=== PATIENT | female | born 1975 | race Caucasian/White ===

== ENCOUNTER 2019-01-17 08:41 | Inpatient (IN) | payer BC ==
[2019-01-17 09:14] VITALS: BMI 28.3
--- NOTE | 2019-01-17 09:39 | HP ---
CIWA Score - Admission Criteria OASAS Guidelines: Admission for Medically Managed Detox: Requires at least one of the followin. CIWA greater than 12 2. Seizures within the past 24 hours 3. Delirium tremens within the past 24 hours 4. Hallucinations within the past 24 hours 5. Acute intervention needed for co occurring medical disorder 6. Acute intervention needed for co occurring psychiatric disorder 7. Severe withdrawal that cannot be handled at a lower level of care (continued vomiting, continued diarrhea, abnormal vital signs) requiring intravenous medication and/or fluids 8. Admission ROS S - HPI Chief Complaint: i amhere for rehab from alcohol,crack,marijuana,cocaine Allergies/Adverse Reactions: Allergies Allergy/AdvReac Type Severity Reaction Status Date / Time seafood Allergy Uncoded 01/17/19 09:39 History of Present Illness: this 43 years old female with alcohol,crack,cocaine marijuana dependence, seeking rehab, last detox and rehab in 2017 in [place] keep relapsing nicotine dependence 2 cigarette/day,do not want nicotine replacement bipolar disorder,ptsd,depression,on med longest sobriety 6 months plan for out patient care after rehab - Ebola screening Have you traveled outside of the country in the last 21 days: No Have you had contact with anyone from an Ebola affected area: No Do you have a fever: No - Review of Systems Constitutional: No Symptoms Reported EENT: reports: No Symptoms Reported (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 right eye with contact lens) Respiratory: reports: No Symptoms reported, Other (asthma) Cardiac: reports: No Symptoms Reported GI: reports: No Symptoms Reported : reports: No Symptoms Reported Musculoskeletal: reports: No Symptoms Reported Integumentary: reports: No Symptoms Reported, Dryness Neuro: reports: No Symptoms reported Endocrine: reports: No Symptoms Reported Hematology: reports: No Symptoms Reported, Other (history of anemia) Psychiatric: reports: No Sypmtoms Reported, Judgement Intact, Mood/Affect Appropiate, Orientated x3, Agitated (bipolar disorder,depression,ptsd), Depressed, other Other Systems: Reviewed and Negative Patient History - Patient Medical History Hx Anemia: Yes (no med) Hx Asthma: Yes (on albuterol inhaler) Hx Chronic Obstructive Pulmonary Disease (COPD): No Hx Cancer: No Hx Cardiac Disorders: No Hx Congestive Heart Failure: No Hx Hypertension: No Hx Hypercholesterolemia: No Hx Pacemaker: No HX Cerebrovascular Accident: No Hx Seizures: No Hx Dementia: No Hx Diabetes: No Hx Gastrointestinal Disorders: No Hx Liver Disease: No Hx Genitourinary Disorders: Yes (s/p hysterctomy for fibriod) Hx Sexually Transmitted Disorders: No Hx Renal Disease (ESRD): No Hx Thyroid Disease: No Hx Human Immunodeficiency Virus (HIV): No (last 11/16 negative) Hx Hepatitis C: No Hx Depression: Yes Hx Suicide Attempt: Yes (overdose at age of 28 years) Hx Bipolar Disorder: Yes Hx Schizophrenia: No Other Medical History: ptsd,no suicidal,no homicidal - Patient Surgical History Past Surgical History: Yes Hx Abdominal Surgery: Yes (exploratory laparotmy for bleeing 7 years ago) Hx Section: Yes (x2 last 1994) Hx Hysterectomy: Yes (in 12/02/18 lap for fibroid) Other Surgical History: conization of 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 Admission?: No PPD to be Administered?: Yes - Reproductive History Patient is a Female of Child Bearing Age (11 -55 yrs old): Yes Patient : No - Smoking Cessation Smoking history: Current every day smoker Have you smoked in the past 12 months: Yes Aproximately how many cigarettes per day: 2 Cigars Per Day: 0 Hx Chewing Tobacco Use: No Initiated information on smoking cessation: Yes 'Breaking Loose' booklet given: 01/17/19 - Substance & Tx. History Hx Alcohol Use: Yes Hx Substance Use: Yes Substance Use Type: Alcohol, Cocaine, Marijuana Hx Substance Use Treatment: Yes ([facility]) - Substances abused Alcohol Substance route: Oral Frequency: Daily Amount used: 1/5th rum, 3 beers (40 oz botttles) Age of first use: 19 Date of last use: 01/16/19 Crack Substance route: Smoking Frequency: 1-2 times per week Amount used: $30 Age of first use: 40 Date of last use: 01/16/19 Cocaine Substance route: Smoking Frequency: 1-2 times per week Amount used: $30 Age of first use: 40 Date of last use: 01/15/19 Marijuana/Hashish Substance route: Smoking Frequency: Daily Amount used: 3 blunts Age of first use: 16 Date of last use: 01/16/19 Family Disease History - Family Disease History Family History: Denies Admission Physical Exam S - Vital Signs Vital Signs: Vital Signs - 24 hr 01/17/19 09:06 Temperature 98 F Pulse Rate 65 Respiratory 18 Rate Blood Pressure 92/64 - Physical General Appearance: Yes: Within Normal Limits HEENTM: Yes: Hearing grossly Normal (blindness of left eye s/p corneal translantation left earing contact lens right), Pharynx Normal Respiratory: Yes: Lungs Clear, Normal Breath Sounds, No Respiratory Distress Neck: Yes: Within Normal Limits, Supple, Trachea in good position Breast: Yes: Breast Exam Deferred Cardiology: Yes: Within Normal Limits, Regular Rhythm, Regular Rate, S1, S2 Abdominal: Yes: Within Normal Limits, Normal Bowel Sounds, Non Tender, Flat, Soft, Surgical Scar Genitourinary: Yes: Within Normal Limits, Other (s/p hystectomy for fibroid) Musculoskeletal: Yes: Within Normal Limits Extremities: Yes: Within Normal Limits Neurological: Yes: molded goods spot picker II-XII NML intact, Fully Oriented, Alert, Motor Strength 5/5 Integumentary: Yes: Within Normal Limits Lymphatic: Yes: Within Normal Limits - Diagnostic (1) Alcohol dependence Current Visit: Yes Status: Acute (2) Cocaine dependence Current Visit: Yes Status: Acute (3) Marijuana dependence Current Visit: Yes Status: Acute (4) Blindness of left eye Current Visit: Yes Status: Acute (5) S/P hysterectomy Current Visit: Yes Status: Acute (6) History of anemia Current Visit: Yes Status: Acute (7) Nicotine dependence Current Visit: Yes Status: Acute (8) Bipolar disorder Current Visit: Yes Status: Acute (9) PTSD (post-traumatic stress disorder) Current Visit: Yes Status: Acute (10) Depression Current Visit: Yes Status: Acute (11) History of 2 sections Current Visit: Yes Status: Acute Cleared for Admission [facility] - Detox or Rehab Claeared for Rehab Admission: Yes Inpatient Rehab Admission - Rehab Decision to Admit Inpatient rehab admission?: Yes - Initial Determination Are CD services needed?: Yes Free of communicable disease: Yes Not in need of hospitalization: Yes - Rehab Admission Criteria Previous failed treatment: Yes Poor recovery environment: Yes Comorbidities: Yes Lacks judgement: No Patient is meeting Inpatient Rehab admission criteria:: Yes
[2019-01-17] MEDS ORDERED: guaiFENesin 200 MG/10 ML 10 ML UNIT-DOSE CUPS PO PRN (09:57)
[2019-01-17] MEDS ORDERED: P-EPHED 60MG/TRIPROLIDI 2.5MG TABLET PO PRN (09:57)
[2019-01-17] MEDS ORDERED: MAG HYDROX/AL HYDROX/SIMETH 30 ML UNIT-DOSE CUP PO PRN (09:57)
[2019-01-17] MEDS ORDERED: MAGNESIUM HYDROX 2400MG/30ML ORAL SUSPENSION 30 ML CUP PO PRN (09:57)
[2019-01-17] MEDS ORDERED: ACETAMINOPHEN 325 MG TABLET (FP) PO PRN (09:57)
[2019-01-17] MEDS ORDERED: MAGNESIUM CITRATE 300 ML BOTTLE PO PRN (09:57)
[2019-01-17] MEDS ORDERED: LOPERAMIDE HCL 2 MG CAPSULE PO PRN (09:57)
[2019-01-17] MEDS ORDERED: MENTHOL/PHENOL 1 EACH UD MM PRN (09:57)
[2019-01-17] MEDS ORDERED: IBUPROFEN 400 MG TABLET (FP) PO PRN (09:57)
[2019-01-17] MEDS ORDERED: PATIENT'S OWN MEDICATION (NON-FORMULARY) (Polyethylene Glycol 3350 [Polyethylene Glycol 33 PO SCH (10:00)
[2019-01-17] MEDS ORDERED: TUBERCULIN PPD 5 TU/0.1ML VIAL ID ONE (13:52)
[2019-01-17] MEDS: DOCUSATE SODIUM 100 MG CAPSULE (FP) PO SCH ×2 (13:56→21:39)
[2019-01-17 14:43] LABS: ALBUMIN 3.7 g/dl (3.4-5.0); ALK PHOS 130 U/L (45-117); ANION GAP 8 MMOL/L (8-16); BILIRUBIN,TOTAL 0.3 mg/dL (0.2-1); BLOOD UREA NITROGEN 18 mg/dL (7-18); CALCIUM 8.8 mg/dL (8.5-10.1); CHLORIDE 105 mmol/L (98-107); CO2 25 mmol/L (21-32); CREATININE 0.8 mg/dL (0.55-1.3); GLUCOSE,RANDOM 85 mg/dL (74-106); POTASSIUM 4.3 mmol/L (3.5-5.1); SGOT/AST 22 U/L (15-37); SGPT/ALT 33 U/L (13-61); SODIUM 138 mmol/L (136-145); TOT PROT 7.3 g/dl (6.4-8.2)
[2019-01-17 15:04] LABS: HEMATOCRIT 42.5 % (32.4-45.2); HEMOGLOBIN 13.8 GM/dL (10.7-15.3); MCH 27.3 pg (25.7-33.7); MCHC 32.5 g/dl (32.0-36.0); MEAN PLT VOLUME 10.1 fl (7.5-11.1); PLATELET COUNT 140 K/MM3 (134-434); RBC 5.06 M/mm3 (3.60-5.2); RDW 15.6 % (11.6-15.6); WHITE BLOOD COUNT 8.5 K/mm3 (4.0-10.0)
[2019-01-17] MEDS: PRENATAL VITAMINS W/ FOLIC ACID TABLET (FP) PO SCH (15:31)
[2019-01-17 15:55] LABS: SICKLE CELL SCREEN NEGATIVE (NEGATIVE)
[2019-01-17 18:34] LABS: EPI CELLS 2.1 /HPF (0-5/HPF); PH,URINE 5.5 (5.0-8.0); URINE APPEARANCE CLEAR; URINE BACTERIA 8534.7 /hpf (NEGATIVE); URINE BILIRUBIN NEGATIVE (NEGATIVE); URINE CASTS 0 /lpf (0-8); URINE COLOR YELLOW; URINE GLUCOSE (UA) NEGATIVE (NEGATIVE); URINE KETONE NEGATIVE (NEGATIVE); URINE LEUK ESTERASE 2+ (NEGATIVE); URINE NITRITE NEGATIVE (NEGATIVE); URINE PROTEIN NEGATIVE (NEGATIVE); URINE RBC 1 /hpf (0-4); URINE UROBILINOGEN 0.2 mg/dL (0.2-1.0); URINE WBC 1 /hpf (0-5)
[2019-01-17] MEDS: THIAMINE HCL 100 MG TABLET (FP) PO SCH (21:39)
[2019-01-17] MEDS: hydrOXYzine PAMOATE 50 MG CAPSULE (FP) PO PRN (21:40)
[2019-01-17] MEDS: MELATONIN 5 MG TABLETS PO PRN (21:41)
[2019-01-17] MEDS ORDERED: risperiDONE 1 MG TABLET (FP) PO ONE (22:15)
[2019-01-17] MEDS ORDERED: DIVALPROEX SODIUM 500 MG TABLET E.C. PO ONE (22:15)
[2019-01-18] MEDS: DOCUSATE SODIUM 100 MG CAPSULE (FP) PO SCH ×3 (06:33→21:24)
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
[2019-01-18] MEDS: BENZTROPINE MESYLATE 1 MG TABLET (FP) PO SCH ×2 (10:08→21:24)
[2019-01-18] MEDS: PRENATAL VITAMINS W/ FOLIC ACID TABLET (FP) PO SCH (10:09)
[2019-01-18] MEDS: DIVALPROEX SODIUM 500 MG TABLET E.C. PO SCH ×2 (10:09→21:26)
[2019-01-18] MEDS: prednisoLONE ACETATE 1% OPHTH SUSP 5 ML BOTTLE OS SCH (10:58)
--- NOTE | 2019-01-18 12:40 | EKG ---
Test Reason : Blood Pressure : / mmHG Vent. Rate : 059 BPM Atrial Rate : 059 BPM P-R Int : 110 ms QRS Dur : 068 ms QT Int : 394 ms P-R-T Axes : 006 059 038 degrees QTc Int : 390 ms SINUS BRADYCARDIA WITH SHORT GA OTHERWISE NORMAL ECG Confirmed by MD AMILCAR, JOSE GUADALUPE ([id number]) on 01/18/2019 12:39:51 PM Referred By: DIVYA ALFRED Confirmed By:JOSE GUADALUPE FITZGERALD MD
--- NOTE | 2019-01-18 12:56 | PN ---
[facility] Progress Note Note: Psychiatric nurse practitioner note: Depakote level 17.4 on 01/18/19. Will continue current medications.
[2019-01-18] MEDS: THIAMINE HCL 100 MG TABLET (FP) PO SCH (21:24)
[2019-01-18] MEDS: risperiDONE 0.5 MG TABLET (FP) PO SCH (21:26)
[2019-01-18] MEDS: hydrOXYzine PAMOATE 50 MG CAPSULE (FP) PO PRN (21:26)
[2019-01-19] MEDS: DOCUSATE SODIUM 100 MG CAPSULE (FP) PO SCH ×3 (06:33→21:27)
[2019-01-19] MEDS: PRENATAL VITAMINS W/ FOLIC ACID TABLET (FP) PO SCH (10:05)
[2019-01-19] MEDS: BENZTROPINE MESYLATE 1 MG TABLET (FP) PO SCH ×2 (10:06→21:28)
[2019-01-19] MEDS: DIVALPROEX SODIUM 500 MG TABLET E.C. PO SCH ×2 (10:06→21:26)
[2019-01-19] MEDS: prednisoLONE ACETATE 1% OPHTH SUSP 5 ML BOTTLE OS SCH (10:07)
[2019-01-19] MEDS ORDERED: PT OWN MED DRAWER 7, Y5N ONE (10:08)
[2019-01-19] MEDS: NICOTINE POLACRILEX 2 MG GUM BUC PRN (13:44)
--- NOTE | 2019-01-19 15:57 | PN ---
[facility] Progress Note Note: PT'S HOME MEDICATION REVIEW INDICATES SHE IS ON NALTREXONE 50 MG PO DAILY AND STATES SHE HAS BEEN TAKING IT AND WANTS TO GET BACK ON IT. PT'S ONLINE OUTSIDE PHARMACY, [facility] ON [address] SHORE MEDICATION LIST REVIEWED AND PT PICKED UP LAST RX POSTED ON 12/27/18. PT IS ALERT O X 3. Vital Signs - 24 hr 01/19/19 01/19/19 01/19/19 00:30 03:30 06:56 Temperature 97.6 F Pulse Rate 84 Respiratory 18 18 18 Rate Blood Pressure 109/75 Laboratory Tests 01/17/19 01/17/19 01/17/19 10:00 10:00 10:00 WBC 8.5 RBC 5.06 Hgb 13.8 Hct 42.5 MCV 84.0 MCH 27.3 MCHC 32.5 RDW 15.6 Plt Count 140 MPV 10.1 Sickle Cell Screen Negative Sodium 138 Potassium 4.3 Chloride 105 Carbon Dioxide 25 Anion Gap 8 BUN 18 Creatinine 0.8 Creat Clearance w eGFR 77.57 Random Glucose 85 Calcium 8.8 Total Bilirubin 0.3 AST 22 ALT 33 Alkaline Phosphatase 130 H Total Protein 7.3 Albumin 3.7 Urine Color Urine Appearance Urine pH Ur Specific [place] Urine Protein Urine Glucose (UA) Urine Ketones Urine Blood Urine Nitrite Urine Bilirubin Urine Urobilinogen Ur Leukocyte Esterase Urine WBC (Auto) Urine RBC (Auto) Urine Casts (Auto) U Epithel Cells (Auto) Urine Bacteria (Auto) Valproic Acid RPR Titer Nonreactive HIV 1&2 Antibody Screen HIV P24 Antigen 01/17/19 01/17/19 01/18/19 10:00 14:00 08:00 WBC RBC Hgb Hct MCV MCH MCHC RDW Plt Count MPV Sickle Cell Screen Sodium Potassium Chloride Carbon Dioxide Anion Gap BUN Creatinine Creat Clearance w eGFR Random Glucose Calcium Total Bilirubin AST ALT Alkaline Phosphatase Total Protein Albumin Urine Color Yellow Urine Appearance Clear Urine pH 5.5 Ur Specific [place] 1.017 Urine Protein Negative Urine Glucose (UA) Negative Urine Ketones Negative Urine Blood Negative Urine Nitrite Negative Urine Bilirubin Negative Urine Urobilinogen 0.2 Ur Leukocyte Esterase 2+ H Urine WBC (Auto) 1 Urine RBC (Auto) 1 Urine Casts (Auto) 0 U Epithel Cells (Auto) 2.1 Urine Bacteria (Auto) 8534.7 Valproic Acid 17.4 L RPR Titer HIV 1&2 Antibody Screen Negative HIV P24 Antigen Negative LABS NOTED UA ABNORMAL ASYMPTOMATIC A:R/O UTI PLAN:REORDER NALTREXONE 50 MG PO DAILY REPEAT UA; DO UC
[2019-01-19] MEDS: NALTREXONE HCL 50 MG TABLET PO SCH (16:45)
[2019-01-19] MEDS: hydrOXYzine PAMOATE 50 MG CAPSULE (FP) PO PRN (21:26)
[2019-01-19] MEDS: THIAMINE HCL 100 MG TABLET (FP) PO SCH (21:26)
[2019-01-19] MEDS: risperiDONE 0.5 MG TABLET (FP) PO SCH (21:27)
[2019-01-19] MEDS: MELATONIN 5 MG TABLETS PO PRN (23:13)
[2019-01-20] MEDS: DOCUSATE SODIUM 100 MG CAPSULE (FP) PO SCH ×3 (06:31→21:23)
[2019-01-20] MEDS ORDERED: PT OWN MED DRAWER 7, Y5N ONE (08:37)
[2019-01-20] MEDS: BENZTROPINE MESYLATE 1 MG TABLET (FP) PO SCH ×2 (09:42→21:23)
[2019-01-20] MEDS: PRENATAL VITAMINS W/ FOLIC ACID TABLET (FP) PO SCH (09:42)
[2019-01-20] MEDS: prednisoLONE ACETATE 1% OPHTH SUSP 5 ML BOTTLE OS SCH (09:42)
[2019-01-20] MEDS: DIVALPROEX SODIUM 500 MG TABLET E.C. PO SCH ×2 (09:42→21:23)
[2019-01-20] MEDS: NALTREXONE HCL 50 MG TABLET PO SCH (09:42)
[2019-01-20] MEDS: hydrOXYzine PAMOATE 50 MG CAPSULE (FP) PO PRN (09:43)
[2019-01-20 10:26] LABS: EPI CELLS 2.2 /HPF (0-5/HPF); PH,URINE 6.5 (5.0-8.0); URINE APPEARANCE CLEAR; URINE BACTERIA >9000 /hpf (NEGATIVE); URINE BILIRUBIN NEGATIVE (NEGATIVE); URINE CASTS 3 /lpf (0-8); URINE COLOR YELLOW; URINE GLUCOSE (UA) NEGATIVE (NEGATIVE); URINE KETONE NEGATIVE (NEGATIVE); URINE LEUK ESTERASE 1+ (NEGATIVE); URINE NITRITE NEGATIVE (NEGATIVE); URINE PROTEIN NEGATIVE (NEGATIVE); URINE RBC 1 /hpf (0-4); URINE UROBILINOGEN 0.2 mg/dL (0.2-1.0); URINE WBC 11 /hpf (0-5)
[2019-01-20] MEDS: NICOTINE 14 MG/24 HOURS TOPICAL PATCH TD SCH (15:45)
[2019-01-20] MEDS: THIAMINE HCL 100 MG TABLET (FP) PO SCH (21:22)
[2019-01-20] MEDS: risperiDONE 0.5 MG TABLET (FP) PO SCH (21:23)
[2019-01-20] MEDS: MELATONIN 5 MG TABLETS PO PRN (21:25)
[2019-01-21] MEDS: DOCUSATE SODIUM 100 MG CAPSULE (FP) PO SCH ×3 (06:30→21:30)
[2019-01-21] MEDS ORDERED: PT OWN MED DRAWER 7, Y5N ONE (10:18)
[2019-01-21] MEDS: hydrOXYzine PAMOATE 50 MG CAPSULE (FP) PO PRN ×2 (10:18→21:30)
[2019-01-21] MEDS: NICOTINE 14 MG/24 HOURS TOPICAL PATCH TD SCH (10:19)
[2019-01-21] MEDS: prednisoLONE ACETATE 1% OPHTH SUSP 5 ML BOTTLE OS SCH (10:19)
[2019-01-21] MEDS: NALTREXONE HCL 50 MG TABLET PO SCH (10:20)
[2019-01-21] MEDS: PRENATAL VITAMINS W/ FOLIC ACID TABLET (FP) PO SCH (10:20)
[2019-01-21] MEDS: BENZTROPINE MESYLATE 1 MG TABLET (FP) PO SCH ×2 (10:20→21:30)
[2019-01-21] MEDS: DIVALPROEX SODIUM 500 MG TABLET E.C. PO SCH ×2 (10:21→21:30)
[2019-01-21] MEDS: risperiDONE 0.5 MG TABLET (FP) PO SCH (21:30)
[2019-01-21] MEDS: THIAMINE HCL 100 MG TABLET (FP) PO SCH (21:30)
[2019-01-21] MEDS: MELATONIN 5 MG TABLETS PO PRN (21:31)
[2019-01-22] MEDS: DOCUSATE SODIUM 100 MG CAPSULE (FP) PO SCH ×3 (06:47→21:47)
[2019-01-22] MEDS ORDERED: PT OWN MED DRAWER 7, Y5N ONE (09:04)
[2019-01-22] MEDS: prednisoLONE ACETATE 1% OPHTH SUSP 5 ML BOTTLE OS SCH (10:15)
[2019-01-22] MEDS: NICOTINE 14 MG/24 HOURS TOPICAL PATCH TD SCH (10:15)
[2019-01-22] MEDS: PRENATAL VITAMINS W/ FOLIC ACID TABLET (FP) PO SCH (10:16)
[2019-01-22] MEDS: NALTREXONE HCL 50 MG TABLET PO SCH (10:16)
[2019-01-22] MEDS: DIVALPROEX SODIUM 500 MG TABLET E.C. PO SCH ×2 (10:16→21:47)
[2019-01-22] MEDS: BENZTROPINE MESYLATE 1 MG TABLET (FP) PO SCH ×2 (10:16→21:48)
--- NOTE | 2019-01-22 12:06 | PN ---
S Progress Note Note: urine for c/s showed Klebsiella Pneumoniae colony count over 100,000 [place] start on bactrim ds 1 tab po bid for 7 days for uti
[2019-01-22] MEDS: SULFAMETHOXAZOLE/TRIMETHOPRIM 800MG/160MG D.S. TABLET PO SCH ×2 (13:03→21:47)
[2019-01-22] MEDS: hydrOXYzine PAMOATE 50 MG CAPSULE (FP) PO PRN ×2 (13:57→21:46)
[2019-01-22] MEDS: POLYETHYLENE GLYCOL 3350 119 GM BTL PO PRN (15:01)
[2019-01-22] MEDS: MELATONIN 5 MG TABLETS PO PRN (21:46)
[2019-01-22] MEDS: THIAMINE HCL 100 MG TABLET (FP) PO SCH (21:46)
[2019-01-22] MEDS: risperiDONE 0.5 MG TABLET (FP) PO SCH (21:49)
[2019-01-23] MEDS: DOCUSATE SODIUM 100 MG CAPSULE (FP) PO SCH ×3 (06:49→21:09)
[2019-01-23] MEDS: prednisoLONE ACETATE 1% OPHTH SUSP 5 ML BOTTLE OS SCH (10:02)
[2019-01-23] MEDS: NALTREXONE HCL 50 MG TABLET PO SCH (10:03)
[2019-01-23] MEDS: PRENATAL VITAMINS W/ FOLIC ACID TABLET (FP) PO SCH (10:03)
[2019-01-23] MEDS: SULFAMETHOXAZOLE/TRIMETHOPRIM 800MG/160MG D.S. TABLET PO SCH ×2 (10:03→21:09)
[2019-01-23] MEDS: DIVALPROEX SODIUM 500 MG TABLET E.C. PO SCH ×2 (10:03→21:09)
[2019-01-23] MEDS: BENZTROPINE MESYLATE 1 MG TABLET (FP) PO SCH ×2 (10:03→21:09)
[2019-01-23] MEDS: NICOTINE 14 MG/24 HOURS TOPICAL PATCH TD SCH (10:04)
[2019-01-23] MEDS: hydrOXYzine PAMOATE 50 MG CAPSULE (FP) PO PRN ×2 (16:59→21:10)
[2019-01-23] MEDS: THIAMINE HCL 100 MG TABLET (FP) PO SCH (21:09)
[2019-01-23] MEDS: risperiDONE 0.5 MG TABLET (FP) PO SCH (21:09)
[2019-01-24] MEDS: DOCUSATE SODIUM 100 MG CAPSULE (FP) PO SCH ×3 (06:46→21:23)
--- NOTE | 2019-01-24 09:29 | PN ---
[facility] Progress Note Note: Laboratory Tests 01/17/19 01/17/19 01/17/19 10:00 10:00 10:00 WBC 8.5 RBC 5.06 Hgb 13.8 Hct 42.5 MCV 84.0 MCH 27.3 MCHC 32.5 RDW 15.6 Plt Count 140 MPV 10.1 Sickle Cell Screen Negative Sodium 138 Potassium 4.3 Chloride 105 Carbon Dioxide 25 Anion Gap 8 BUN 18 Creatinine 0.8 Creat Clearance w eGFR 77.57 Random Glucose 85 Calcium 8.8 Total Bilirubin 0.3 AST 22 ALT 33 Alkaline Phosphatase 130 H Total Protein 7.3 Albumin 3.7 Urine Color Urine Appearance Urine pH Ur Specific [place] Urine Protein Urine Glucose (UA) Urine Ketones Urine Blood Urine Nitrite Urine Bilirubin Urine Urobilinogen Ur Leukocyte Esterase Urine WBC (Auto) Urine RBC (Auto) Urine Casts (Auto) U Epithel Cells (Auto) Urine Bacteria (Auto) Valproic Acid RPR Titer Nonreactive HIV 1&2 Antibody Screen HIV P24 Antigen 01/17/19 01/17/19 01/18/19 10:00 14:00 08:00 WBC RBC Hgb Hct MCV MCH MCHC RDW Plt Count MPV Sickle Cell Screen Sodium Potassium Chloride Carbon Dioxide Anion Gap BUN Creatinine Creat Clearance w eGFR Random Glucose Calcium Total Bilirubin AST ALT Alkaline Phosphatase Total Protein Albumin Urine Color Yellow Urine Appearance Clear Urine pH 5.5 Ur Specific [place] 1.017 Urine Protein Negative Urine Glucose (UA) Negative Urine Ketones Negative Urine Blood Negative Urine Nitrite Negative Urine Bilirubin Negative Urine Urobilinogen 0.2 Ur Leukocyte Esterase 2+ H Urine WBC (Auto) 1 Urine RBC (Auto) 1 Urine Casts (Auto) 0 U Epithel Cells (Auto) 2.1 Urine Bacteria (Auto) 8534.7 Valproic Acid 17.4 L RPR Titer HIV 1&2 Antibody Screen Negative HIV P24 Antigen Negative 01/20/19 08:30 WBC RBC Hgb Hct MCV MCH MCHC RDW Plt Count MPV Sickle Cell Screen Sodium Potassium Chloride Carbon Dioxide Anion Gap BUN Creatinine Creat Clearance w eGFR Random Glucose Calcium Total Bilirubin AST ALT Alkaline Phosphatase Total Protein Albumin Urine Color Yellow Urine Appearance Clear Urine pH 6.5 Ur Specific [place] 1.018 Urine Protein Negative Urine Glucose (UA) Negative Urine Ketones Negative Urine Blood Negative Urine Nitrite Negative Urine Bilirubin Negative Urine Urobilinogen 0.2 Ur Leukocyte Esterase 1+ H Urine WBC (Auto) 11 Urine RBC (Auto) 1 Urine Casts (Auto) 3 U Epithel Cells (Auto) 2.2 Urine Bacteria (Auto) >9000 Valproic Acid RPR Titer HIV 1&2 Antibody Screen HIV P24 Antigen Microbiology 01/20/19 08:30 Urine - Urine Clean Catch Urine Culture - Final Klebsiella Pneumoniae A:UTI PLAN:STARTED ON BACTRIM DS
[2019-01-24] MEDS: SULFAMETHOXAZOLE/TRIMETHOPRIM 800MG/160MG D.S. TABLET PO SCH ×2 (10:02→21:23)
[2019-01-24] MEDS: BENZTROPINE MESYLATE 1 MG TABLET (FP) PO SCH ×2 (10:02→21:24)
[2019-01-24] MEDS: DIVALPROEX SODIUM 500 MG TABLET E.C. PO SCH ×2 (10:03→21:23)
[2019-01-24] MEDS: NICOTINE 14 MG/24 HOURS TOPICAL PATCH TD SCH (10:03)
[2019-01-24] MEDS: NALTREXONE HCL 50 MG TABLET PO SCH (10:04)
[2019-01-24] MEDS: prednisoLONE ACETATE 1% OPHTH SUSP 5 ML BOTTLE OS SCH (10:04)
[2019-01-24] MEDS: PRENATAL VITAMINS W/ FOLIC ACID TABLET (FP) PO SCH (10:04)
[2019-01-24] MEDS: hydrOXYzine PAMOATE 50 MG CAPSULE (FP) PO PRN ×2 (10:05→21:23)
--- NOTE | 2019-01-24 12:31 | PN ---
[facility] Progress Note Note: PATIENT SEEN FOR ABNORMAL URINE CULTURE. PATIENT CURRENTLY TREATED WITH BACTRIM FOR UTI. PATIENT STATES SHE FEELS BETTER, DENIES BURNING UPON URINATION, FREQUENCY, AND FEVER. Vital Signs Temperature 97.7 F 01/24/19 07:04 Pulse Rate 87 01/24/19 07:04 Respiratory Rate 18 01/24/19 07:04 Blood Pressure 110/74 01/24/19 07:04 O2 Sat by Pulse Oximetry (%) Laboratory Tests 01/17/19 01/17/19 01/17/19 10:00 10:00 10:00 WBC 8.5 RBC 5.06 Hgb 13.8 Hct 42.5 MCV 84.0 MCH 27.3 MCHC 32.5 RDW 15.6 Plt Count 140 MPV 10.1 Sickle Cell Screen Negative Sodium 138 Potassium 4.3 Chloride 105 Carbon Dioxide 25 Anion Gap 8 BUN 18 Creatinine 0.8 Creat Clearance w eGFR 77.57 Random Glucose 85 Calcium 8.8 Total Bilirubin 0.3 AST 22 ALT 33 Alkaline Phosphatase 130 H Total Protein 7.3 Albumin 3.7 Urine Color Urine Appearance Urine pH Ur Specific [place] Urine Protein Urine Glucose (UA) Urine Ketones Urine Blood Urine Nitrite Urine Bilirubin Urine Urobilinogen Ur Leukocyte Esterase Urine WBC (Auto) Urine RBC (Auto) Urine Casts (Auto) U Epithel Cells (Auto) Urine Bacteria (Auto) Valproic Acid RPR Titer Nonreactive HIV 1&2 Antibody Screen HIV P24 Antigen 01/17/19 01/17/19 01/18/19 10:00 14:00 08:00 WBC RBC Hgb Hct MCV MCH MCHC RDW Plt Count MPV Sickle Cell Screen Sodium Potassium Chloride Carbon Dioxide Anion Gap BUN Creatinine Creat Clearance w eGFR Random Glucose Calcium Total Bilirubin AST ALT Alkaline Phosphatase Total Protein Albumin Urine Color Yellow Urine Appearance Clear Urine pH 5.5 Ur Specific [place] 1.017 Urine Protein Negative Urine Glucose (UA) Negative Urine Ketones Negative Urine Blood Negative Urine Nitrite Negative Urine Bilirubin Negative Urine Urobilinogen 0.2 Ur Leukocyte Esterase 2+ H Urine WBC (Auto) 1 Urine RBC (Auto) 1 Urine Casts (Auto) 0 U Epithel Cells (Auto) 2.1 Urine Bacteria (Auto) 8534.7 Valproic Acid 17.4 L RPR Titer HIV 1&2 Antibody Screen Negative HIV P24 Antigen Negative 01/20/19 08:30 WBC RBC Hgb Hct MCV MCH MCHC RDW Plt Count MPV Sickle Cell Screen Sodium Potassium Chloride Carbon Dioxide Anion Gap BUN Creatinine Creat Clearance w eGFR Random Glucose Calcium Total Bilirubin AST ALT Alkaline Phosphatase Total Protein Albumin Urine Color Yellow Urine Appearance Clear Urine pH 6.5 Ur Specific [place] 1.018 Urine Protein Negative Urine Glucose (UA) Negative Urine Ketones Negative Urine Blood Negative Urine Nitrite Negative Urine Bilirubin Negative Urine Urobilinogen 0.2 Ur Leukocyte Esterase 1+ H Urine WBC (Auto) 11 Urine RBC (Auto) 1 Urine Casts (Auto) 3 U Epithel Cells (Auto) 2.2 Urine Bacteria (Auto) >9000 Valproic Acid RPR Titer HIV 1&2 Antibody Screen HIV P24 Antigen URINE CULTURE 100,000 COL KLEB PNEUMONAIE. SENSITIVE TO BACTRIM. WILL CONTINUE TX AND ORAL FLUIDS ENCOURAGED.
[2019-01-24] MEDS: risperiDONE 0.5 MG TABLET (FP) PO SCH (21:23)
[2019-01-24] MEDS: THIAMINE HCL 100 MG TABLET (FP) PO SCH (21:23)
[2019-01-25] MEDS: DOCUSATE SODIUM 100 MG CAPSULE (FP) PO SCH ×3 (06:32→21:23)
[2019-01-25] MEDS ORDERED: PT OWN MED DRAWER 7, Y5N ONE ×2 (08:35→16:46)
[2019-01-25] MEDS: prednisoLONE ACETATE 1% OPHTH SUSP 5 ML BOTTLE OS SCH (09:47)
[2019-01-25] MEDS: hydrOXYzine PAMOATE 50 MG CAPSULE (FP) PO PRN ×3 (09:47→21:25)
[2019-01-25] MEDS: SULFAMETHOXAZOLE/TRIMETHOPRIM 800MG/160MG D.S. TABLET PO SCH ×2 (09:47→21:23)
[2019-01-25] MEDS: NALTREXONE HCL 50 MG TABLET PO SCH (09:47)
[2019-01-25] MEDS: BENZTROPINE MESYLATE 1 MG TABLET (FP) PO SCH ×2 (09:48→21:23)
[2019-01-25] MEDS: NICOTINE 14 MG/24 HOURS TOPICAL PATCH TD SCH (09:48)
[2019-01-25] MEDS: DIVALPROEX SODIUM 500 MG TABLET E.C. PO SCH ×2 (09:48→21:23)
[2019-01-25] MEDS: PRENATAL VITAMINS W/ FOLIC ACID TABLET (FP) PO SCH (09:48)
[2019-01-25] MEDS: POLYETHYLENE GLYCOL 3350 119 GM BTL PO PRN (16:47)
[2019-01-25] MEDS: risperiDONE 0.5 MG TABLET (FP) PO SCH (21:22)
[2019-01-25] MEDS: THIAMINE HCL 100 MG TABLET (FP) PO SCH (21:23)
[2019-01-26] MEDS: DOCUSATE SODIUM 100 MG CAPSULE (FP) PO SCH ×3 (06:34→21:43)
[2019-01-26] MEDS ORDERED: PT OWN MED DRAWER 7, Y5N ONE (08:50)
[2019-01-26] MEDS: NICOTINE 14 MG/24 HOURS TOPICAL PATCH TD SCH (10:31)
[2019-01-26] MEDS: NALTREXONE HCL 50 MG TABLET PO SCH (10:32)
[2019-01-26] MEDS: DIVALPROEX SODIUM 500 MG TABLET E.C. PO SCH ×2 (10:32→21:43)
[2019-01-26] MEDS: PRENATAL VITAMINS W/ FOLIC ACID TABLET (FP) PO SCH (10:32)
[2019-01-26] MEDS: prednisoLONE ACETATE 1% OPHTH SUSP 5 ML BOTTLE OS SCH (10:32)
[2019-01-26] MEDS: SULFAMETHOXAZOLE/TRIMETHOPRIM 800MG/160MG D.S. TABLET PO SCH ×2 (10:33→21:43)
[2019-01-26] MEDS: BENZTROPINE MESYLATE 1 MG TABLET (FP) PO SCH ×2 (10:33→21:44)
[2019-01-26] MEDS: NICOTINE POLACRILEX 2 MG GUM BUC PRN (13:01)
[2019-01-26] MEDS: hydrOXYzine PAMOATE 50 MG CAPSULE (FP) PO PRN ×2 (17:54→21:43)
[2019-01-26] MEDS: THIAMINE HCL 100 MG TABLET (FP) PO SCH (21:42)
[2019-01-26] MEDS: risperiDONE 0.5 MG TABLET (FP) PO SCH (21:43)
[2019-01-27] MEDS: DOCUSATE SODIUM 100 MG CAPSULE (FP) PO SCH ×3 (06:36→21:34)
[2019-01-27] MEDS: NICOTINE 14 MG/24 HOURS TOPICAL PATCH TD SCH (10:18)
[2019-01-27] MEDS: DIVALPROEX SODIUM 500 MG TABLET E.C. PO SCH ×2 (10:19→21:34)
[2019-01-27] MEDS: BENZTROPINE MESYLATE 1 MG TABLET (FP) PO SCH ×2 (10:19→21:36)
[2019-01-27] MEDS: prednisoLONE ACETATE 1% OPHTH SUSP 5 ML BOTTLE OS SCH (10:19)
[2019-01-27] MEDS: NALTREXONE HCL 50 MG TABLET PO SCH (10:20)
[2019-01-27] MEDS: SULFAMETHOXAZOLE/TRIMETHOPRIM 800MG/160MG D.S. TABLET PO SCH ×2 (10:20→21:34)
[2019-01-27] MEDS: PRENATAL VITAMINS W/ FOLIC ACID TABLET (FP) PO SCH (10:21)
[2019-01-27] MEDS: POLYETHYLENE GLYCOL 3350 119 GM BTL PO PRN (10:22)
[2019-01-27] MEDS: hydrOXYzine PAMOATE 50 MG CAPSULE (FP) PO PRN ×3 (10:22→21:36)
[2019-01-27] MEDS: THIAMINE HCL 100 MG TABLET (FP) PO SCH (21:34)
[2019-01-27] MEDS: risperiDONE 0.5 MG TABLET (FP) PO SCH (21:34)
[2019-01-28] MEDS: DOCUSATE SODIUM 100 MG CAPSULE (FP) PO SCH ×3 (06:27→21:06)
[2019-01-28] MEDS: SULFAMETHOXAZOLE/TRIMETHOPRIM 800MG/160MG D.S. TABLET PO SCH ×2 (09:57→21:07)
[2019-01-28] MEDS: DIVALPROEX SODIUM 500 MG TABLET E.C. PO SCH ×2 (09:57→21:06)
[2019-01-28] MEDS: PRENATAL VITAMINS W/ FOLIC ACID TABLET (FP) PO SCH (09:57)
[2019-01-28] MEDS: NALTREXONE HCL 50 MG TABLET PO SCH (09:57)
[2019-01-28] MEDS: BENZTROPINE MESYLATE 1 MG TABLET (FP) PO SCH ×2 (09:57→21:07)
[2019-01-28] MEDS: NICOTINE 14 MG/24 HOURS TOPICAL PATCH TD SCH (09:57)
[2019-01-28] MEDS: prednisoLONE ACETATE 1% OPHTH SUSP 5 ML BOTTLE OS SCH (09:57)
[2019-01-28] MEDS: POLYETHYLENE GLYCOL 3350 119 GM BTL PO PRN (09:58)
--- NOTE | 2019-01-28 10:51 | PN ---
S Progress Note Note: PT C/O TO NURSE ABOUT RASH ON LEFT UPPER LIP. SAW PT WHO REPORTS SHE THOUGHT THE CAR SALESMAN COLOR ON HER LIP WAS SOME PROBLEM. REPORTS SHE HAS NOT BEEN LOOKING AT HER LIP BECAUSE WAS ALWAYS USING DRUG BUT NOW THAT SHE IS HERE SHE LOOKED. PT DENIES PAIN, ITCHINESS OR SWELLING TO AREA. Vital Signs 01/28/19 01/28/19 03:30 07:03 Temperature 97.6 F Pulse Rate 89 Respiratory 18 18 Rate Blood Pressure 106/69 EXAM;NO REDNESS OR SWELLING. NO BUMPS/LESIONS OR DRY SKIN ON LIP NOTED. PLAN:INCREASE PO FLUIDS MOISTURIZE WITH PETROLATUM OINTMENT IF NEEDED.
[2019-01-28] MEDS: THIAMINE HCL 100 MG TABLET (FP) PO SCH (21:05)
[2019-01-28] MEDS: hydrOXYzine PAMOATE 50 MG CAPSULE (FP) PO PRN (21:05)
[2019-01-28] MEDS: risperiDONE 0.5 MG TABLET (FP) PO SCH (21:05)
[2019-01-29] MEDS: DOCUSATE SODIUM 100 MG CAPSULE (FP) PO SCH ×3 (06:35→21:39)
[2019-01-29] MEDS ORDERED: PT OWN MED DRAWER 7, Y5N ONE (08:26)
[2019-01-29] MEDS: PRENATAL VITAMINS W/ FOLIC ACID TABLET (FP) PO SCH (10:01)
[2019-01-29] MEDS: BENZTROPINE MESYLATE 1 MG TABLET (FP) PO SCH ×2 (10:01→21:37)
[2019-01-29] MEDS: NALTREXONE HCL 50 MG TABLET PO SCH (10:01)
[2019-01-29] MEDS: NICOTINE 14 MG/24 HOURS TOPICAL PATCH TD SCH (10:01)
[2019-01-29] MEDS: DIVALPROEX SODIUM 500 MG TABLET E.C. PO SCH ×2 (10:02→21:37)
[2019-01-29] MEDS: prednisoLONE ACETATE 1% OPHTH SUSP 5 ML BOTTLE OS SCH (10:02)
[2019-01-29] MEDS: POLYETHYLENE GLYCOL 3350 119 GM BTL PO PRN (10:03)
[2019-01-29] MEDS: risperiDONE 0.5 MG TABLET (FP) PO SCH (21:37)
[2019-01-29] MEDS: MELATONIN 5 MG TABLETS PO PRN (21:38)
[2019-01-29] MEDS: hydrOXYzine PAMOATE 50 MG CAPSULE (FP) PO PRN (21:38)
[2019-01-29] MEDS: THIAMINE HCL 100 MG TABLET (FP) PO SCH (21:39)
[2019-01-30] MEDS: DOCUSATE SODIUM 100 MG CAPSULE (FP) PO SCH ×3 (06:47→21:36)
[2019-01-30] MEDS ORDERED: PT OWN MED DRAWER 7, Y5N ONE (08:27)
[2019-01-30] MEDS: POLYETHYLENE GLYCOL 3350 119 GM BTL PO PRN (10:01)
[2019-01-30] MEDS: NICOTINE 14 MG/24 HOURS TOPICAL PATCH TD SCH (10:02)
[2019-01-30] MEDS: NALTREXONE HCL 50 MG TABLET PO SCH (10:02)
[2019-01-30] MEDS: DIVALPROEX SODIUM 500 MG TABLET E.C. PO SCH ×2 (10:02→21:36)
[2019-01-30] MEDS: PRENATAL VITAMINS W/ FOLIC ACID TABLET (FP) PO SCH (10:02)
[2019-01-30] MEDS: BENZTROPINE MESYLATE 1 MG TABLET (FP) PO SCH ×2 (10:02→21:36)
[2019-01-30] MEDS: prednisoLONE ACETATE 1% OPHTH SUSP 5 ML BOTTLE OS SCH (10:03)
[2019-01-30] MEDS: NICOTINE POLACRILEX 2 MG GUM BUC PRN (14:02)
--- NOTE | 2019-01-30 15:14 | PN ---
[facility] Progress Note Note: Patient is scheduled for discharge tomorrow. Scripts for 30 days supply of medications(Risperdal 1.5 mg/hs, Cogentin 0.5 mg /bid, Depakote 500 mg/day & 1000mg/hs) will be electronically transmitted to [facility] at [address] [place] [id number]
[2019-01-30] MEDS: hydrOXYzine PAMOATE 50 MG CAPSULE (FP) PO PRN (21:36)
[2019-01-30] MEDS: THIAMINE HCL 100 MG TABLET (FP) PO SCH (21:37)
[2019-01-30] MEDS: risperiDONE 0.5 MG TABLET (FP) PO SCH (21:37)
[2019-01-31] MEDS: DOCUSATE SODIUM 100 MG CAPSULE (FP) PO SCH (06:10)
[2019-01-31 06:55] VITALS: BP 109/71; PULSE 76; TEMP 97.2
[2019-01-31] MEDS ORDERED: PT OWN MED DRAWER 7, Y5N ONE (08:07)
[2019-01-31] MEDS: BENZTROPINE MESYLATE 1 MG TABLET (FP) PO SCH (09:07)
[2019-01-31] MEDS: DIVALPROEX SODIUM 500 MG TABLET E.C. PO SCH (09:08)
[2019-01-31] MEDS: NALTREXONE HCL 50 MG TABLET PO SCH (09:08)
[2019-01-31] MEDS: prednisoLONE ACETATE 1% OPHTH SUSP 5 ML BOTTLE OS SCH (09:08)
[2019-01-31] MEDS: PRENATAL VITAMINS W/ FOLIC ACID TABLET (FP) PO SCH (09:08)
[2019-01-31] MEDS: NICOTINE 14 MG/24 HOURS TOPICAL PATCH TD SCH (09:08)
--- NOTE | 2019-01-31 11:11 | PN ---
[facility] Progress Note Note: PT COMPLETED REHAB AND DISCHARGED TODAY. PT WAS REFERRED FOR CD AFTERCARE TO [facility] ON [address], [place]. PT REPORTS SHE HAS A PCP(FORGOT THE DOCTOR'S NAME) ON [address], [place] FOR MEDICAL MANAGEMENT. PT IS ALERT O X 3. DENIES S/H/I. Home Medications Medication Instructions Recorded Divalproex [Depakote -] 500 mg PO HS 01/17/19 Docusate Sodium 100 mg PO TID 01/17/19 Folic Acid 1 mg PO DAILY 01/17/19 Naltrexone HCl 50 mg PO DAILY 01/17/19 Polyethylene Glycol 3350 17 gm PO PRN 01/17/19 Risperidone 1 mg PO HS 01/17/19 Thiamine HCl [Vitamin B-1] 100 mg PO DAILY 01/17/19 Benztropine Mesylate [Cogentin -] 0.5 mg PO BID #60 tablet 01/30/19 Divalproex [Depakote -] 1,000 mg PO HS #60 tablet.ec 01/30/19 Divalproex [Depakote -] 500 mg PO DAILY #30 tablet.ec 01/30/19 Risperidone [Risperdal -] 1.5 mg PO HS #90 tablet 01/30/19 Vital Signs - 8 hr 01/31/19 06:54 Temperature 97.2 F L Pulse Rate 76 Respiratory 18 Rate Blood Pressure 109/71 Laboratory Tests 01/17/19 01/17/19 01/17/19 10:00 10:00 10:00 WBC 8.5 RBC 5.06 Hgb 13.8 Hct 42.5 MCV 84.0 MCH 27.3 MCHC 32.5 RDW 15.6 Plt Count 140 MPV 10.1 Sickle Cell Screen Negative Sodium 138 Potassium 4.3 Chloride 105 Carbon Dioxide 25 Anion Gap 8 BUN 18 Creatinine 0.8 Creat Clearance w eGFR 77.57 Random Glucose 85 Calcium 8.8 Total Bilirubin 0.3 AST 22 ALT 33 Alkaline Phosphatase 130 H Total Protein 7.3 Albumin 3.7 Urine Color Urine Appearance Urine pH Ur Specific [place] Urine Protein Urine Glucose (UA) Urine Ketones Urine Blood Urine Nitrite Urine Bilirubin Urine Urobilinogen Ur Leukocyte Esterase Urine WBC (Auto) Urine RBC (Auto) Urine Casts (Auto) U Epithel Cells (Auto) Urine Bacteria (Auto) Valproic Acid RPR Titer Nonreactive HIV 1&2 Antibody Screen HIV P24 Antigen 01/17/19 01/17/19 01/18/19 10:00 14:00 08:00 WBC RBC Hgb Hct MCV MCH MCHC RDW Plt Count MPV Sickle Cell Screen Sodium Potassium Chloride Carbon Dioxide Anion Gap BUN Creatinine Creat Clearance w eGFR Random Glucose Calcium Total Bilirubin AST ALT Alkaline Phosphatase Total Protein Albumin Urine Color Yellow Urine Appearance Clear Urine pH 5.5 Ur Specific [place] 1.017 Urine Protein Negative Urine Glucose (UA) Negative Urine Ketones Negative Urine Blood Negative Urine Nitrite Negative Urine Bilirubin Negative Urine Urobilinogen 0.2 Ur Leukocyte Esterase 2+ H Urine WBC (Auto) 1 Urine RBC (Auto) 1 Urine Casts (Auto) 0 U Epithel Cells (Auto) 2.1 Urine Bacteria (Auto) 8534.7 Valproic Acid 17.4 L RPR Titer HIV 1&2 Antibody Screen Negative HIV P24 Antigen Negative 01/20/19 08:30 WBC RBC Hgb Hct MCV MCH MCHC RDW Plt Count MPV Sickle Cell Screen Sodium Potassium Chloride Carbon Dioxide Anion Gap BUN Creatinine Creat Clearance w eGFR Random Glucose Calcium Total Bilirubin AST ALT Alkaline Phosphatase Total Protein Albumin Urine Color Yellow Urine Appearance Clear Urine pH 6.5 Ur Specific [place] 1.018 Urine Protein Negative Urine Glucose (UA) Negative Urine Ketones Negative Urine Blood Negative Urine Nitrite Negative Urine Bilirubin Negative Urine Urobilinogen 0.2 Ur Leukocyte Esterase 1+ H Urine WBC (Auto) 11 Urine RBC (Auto) 1 Urine Casts (Auto) 3 U Epithel Cells (Auto) 2.2 Urine Bacteria (Auto) >9000 Valproic Acid RPR Titer HIV 1&2 Antibody Screen HIV P24 Antigen NAD MEDICALLY STABLE PLAN:FOLLOW UP WITH CD AFTERCARE RECOMMENDATION. FOLLOW UP WITH PCP WITHIN 1-2 WEEKS AFTER DISCHARGE.
== END 2019-01-31 10:32 | disposition home or self-care (01) | DRG 772 ==
LOC: YASAS 08:41 → Y3E 09:35
PROVIDERS: ADMIT Surgery; ATTEND Surgery
PROC: HZ42ZZZ Group Counseling for Substance Abuse Treatment, Cognitive-Behavioral (ICD-10-PCS; principal; 2019-01-17)
DX: F10.20 Alcohol dependence, uncomplicated (principal); F14.20 Cocaine dependence, uncomplicated; F12.20 Cannabis dependence, uncomplicated; F17.210 Nicotine dependence, cigarettes, uncomplicated; F19.24 Other psychoactive substance dependence with psychoactive substance-induced mood disorder; F31.9 Bipolar disorder, unspecified; F43.10 Post-traumatic stress disorder, unspecified; N39.0 Urinary tract infection, site not specified; B96.1 Klebsiella pneumoniae [K. pneumoniae] as the cause of diseases classified elsewhere; H54.61 Unqualified visual loss, right eye, normal vision left eye; Z94.7 Corneal transplant status; Z91.5 Personal history of self-harm
CPT/HCPCS: 36415; 80053; 80164; 81003; 85027; 85660; 86593; 87086; 87186; 87389; 93005; 93010; J2794